=== PATIENT | female | born 1965 | race Caucasian/White ===

== ENCOUNTER 2016-11-27 16:30 | Inpatient (IN) | payer OTHER ==
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
--- NOTE | ~2016-11-27 | DS ---
Unit #: [id number] #: [id number] Patient: DAVID CHINCHILLA [id number] [place] [address] [id number] MR#: [id number] NAME: DAVID CHINCHILLA ROOM: P252 Age: 51 Sex: F Admission Date: 11/27/2016 : 1965 Discharge Date: 12/01/2016 Attending Physician: Domenico Huff M.D. Primary Care Physician: Generic Doctor Not In System DISCHARGE SUMMARY REASON FOR ADMISSION David is a 51-year-old woman with a history depression who report increasing depressive symptoms including low motivation, low energy, irritability, hopelessness, helplessness, sadness and increasing suicidal ideation. She was unable to contract for safety was admitted for stabilization. DIAGNOSTIC STUDIES LABORATORY DATA: Please see hospital chart. HOSPITAL COURSE David was admitted and placed on suicide precautions. Expiration of her medicines revealed that she was on dual antidepressant treatment with Effexor and Zoloft, with Xanax as needed for anxiety. Zoloft 150 mg daily was continued and Effexor XR was increased to 150 mg daily for better control of both depression and anxiety. Trazodone was also added for control of depression. Her other medications were continued unchanged. She engaged in psychotherapy groups and was a generally active and good participant. Her mood gradually improved and on date of discharge she was able to contract for safety with no further suicidal ideation, intent or plan. DISCHARGE DIAGNOSIS AXIS I: Major depressive disorder. AXIS II: No diagnosis. AXIS III: Hypertension, chronic pain. INSTRUCTION TO PATIENT Follow up with primary care physician and with adult psychiatric IOP at our facility. DISCHARGE MEDICATIONS Effexor XR 150 mg daily for depression. Trazodone 50 mg at bedtime as needed for insomnia. Medications continue unchanged were Zoloft 150 mg daily for depression, Xanax 1 mg twice daily for anxiety, lisinopril 20 mg daily for hypertension, Robaxin 750 mg t.i.d. for muscle relaxation, baclofen 20 mg t.i.d. for muscle relaxation, Motrin 800 every 8 hours as needed for pain. CONDITION ON DISCHARGE Improved. Unit #: [id number] #: [id number] Patient: DAVID CHINCHILLA PROGNOSIS Fair to good. DIET AND ACTIVITY Per primary care physician Dictated by... Domenico Huff M.D. [facility]/rll TD: 01/09/2017 04:50 JOB #: [id number] DISCHARGE SUMMARY Page 1 of 1 X Domenico Huff MD DISCHARGE SUMMARY
--- NOTE | ~2016-11-27 | HP ---
Unit #: [id number] #: [id number] Patient: DAVID CHINCHILLA [id number] [place] [address] [id number] MR#: [id number] NAME: DAVID CHINCHILLA ROOM: P252 Age: 51 Sex: F Admission Date: 11/27/2016 : 1965 Attending Physician: Domenico Huff M.D. Admitting Physician: Domenico Huff M.D. Primary Care Physician: Generic Doctor Not In System HISTORY AND PHYSICAL HISTORY OF PRESENT ILLNESS David is a 51 year old admitted to [address] [place] [address] with increased depression and anxiety. PAST MEDICAL HISTORY High blood pressure. PAST SURGICAL HISTORY x1. ALLERGIES Latex. SOCIAL HISTORY She does not smoke. Drinks a fifth of liquor on a weekly basis and denies illicit drug use. FAMILY HISTORY Medically noncontributory. REVIEW OF SYSTEMS CONSTITUTIONAL: No fever or chills. HEENT: Denies any sore throat, ear pain or runny nose. CARDIOVASCULAR: Denies chest pain, irregular heart rhythm or palpitations. CHEST: Denies shortness of breath or cough. No hemoptysis. GASTROINTESTINAL: Denies nausea, vomiting, diarrhea or chronic constipation. ENDOCRINE: Denies history of increased thirst or urination. No recent significant weight loss or gain. GENITOURINARY: Denies dysuria, frequency, or hematuria. SKIN: Denies any rashes. HEMATOLOGIC: Denies history of increased bleeding or bruising. MUSCULOSKELETAL: Denies any hot, swollen joints. No generalized muscle pain. NEUROLOGIC: Denies problems with vision or speech. No frequent, severe headaches. No numbness, tingling or weakness in any extremities. Denies loss of bladder or bowel control. CURRENT MEDICATIONS 1. Xanax 1 mg b.i.d. 2. Milk of Magnesia p.r.n. 3. Maalox p.r.n. 4. Tylenol p.r.n. Unit #: [id number] #: [id number] Patient: DAVID CHINCHILLA 5. Lioresal 20 mg t.i.d. p.r.n. 6. Desyrel 50 mg q.h.s. p.r.n. 7. Methocarbamol 750 mg t.i.d. 8. Zoloft 150 mg daily. 9. Effexor XR 75 mg daily. 10. Zestril 20 mg daily. PHYSICAL EXAMINATION GENERAL: Alert, well-nourished, in no apparent distress. VITAL SIGNS: Blood pressure 110/74, heart rate 80, respirations 16, temperature 98.6. SKIN: Warm and dry without rash or lesion. HEENT: Normocephalic. TMs not viewed. Oral and nasal passages clear. Conjunctivae clear. PERRLA. EOMs intact. NECK: Supple without lymphadenopathy or thyromegaly. HEART: Regular rate and rhythm without murmur. LUNGS: Clear. ABDOMEN: Soft, nontender. : Not done. EXTREMITIES: No evidence of cyanosis, clubbing or edema. Moves all without focal deficit. NEUROLOGICAL: Grossly within normal limits. Cranial Nerves: II: Visual dalton are intact. III, IV AND : Extraocular movements are intact. Pupils are equal, round and reactive to light. V: Facial sensation is grossly normal. VII: Facial movements and expression are normal. VIII: Auditory acuity grossly intact. IX, X: Uvula is midline. Phonation is normal. XI: Patient shrugs shoulders and turns head normally. XII: Tongue protrudes in the midline. Sensory and Motor Function: Sensory and motor sensation is grossly normal. Motor: moves all extremities well. Coordination: Gait is normal. Deep Tendon Reflexes: Intact. IMPRESSION Psychiatric admission. RECOMMENDATIONS PSYCHIATRIC: Per psychiatrist. MEDICAL: See no contraindication to participate in facility's activities. MEDICAL PROGNOSIS Good. MEDICAL CONDITION Stable. Dictated by... Lucy Monique P.A.-C. for Olaf Lopez/sami TD: 11/28/2016 15:14 JOB #: [id number] Unit #: [id number] #: [id number] Patient: DAVID CHINCHILLA HISTORY AND PHYSICAL Page 1 of 1 X Lucy Monique HISTORY AND PHYSICAL
[2016-11-28 09:44] LABS: BASOPHIL% 0.5 % (0-2.5); EOSINOPHIL# 0.1 X10e3 (0-0.7); EOSINOPHIL% 1.1 % (0.0-7.0); HEMATOCRIT 43.8 % (35.0-45.0); HEMOGLOBIN 14.6 gm/dL (12.0-16.0); LYMPHOCYTE# 1.6 X10e3 (1.0-3.5); LYMPHOCYTE% 20.1 % (17.0-45.0); MEAN CELL VOLUME 91.1 FL (83-96); MEAN CORPUSCULAR HEMOGLOBIN 30.4 PG (28-34); MEAN CORPUSCULAR HGB CONC 33.4 g/dL (30-36); MEAN PLATELET VOLUME 10.3 FL (6.5-11.5); MONOCYTE# 0.4 X10e3 (0-1.0); MONOCYTE% 4.6 % (3.0-12.0); NEUTROPHIL% 73.7 % (40-75); PLATELET COUNT 182 X10e3 (140-420); RED BLOOD COUNT 4.81 X10e (3.90-5.30); RED CELL DISTRIBUTION WIDTH 14.1 % (11.0-15.5); WHITE BLOOD COUNT 8.1 X10e3 (4.0-10.5)
[2016-11-28 10:08] LABS: DIFF IND NO
[2016-11-28 10:15] LABS: ALBUMIN SERUM 4.4 g/dL (3.5-5.0); BILIRUBIN,TOTAL 0.8 mg/dL (0.2-2.0); CALCIUM SERUM 9.8 mg/dL (8.4-10.2); CREATININE SERUM 0.8 mg/dL (0.6-1.4); GLOM FILT RATE Estimated 85.4 mL/min (>60); POTASSIUM 4.2 mmol/L (3.5-5.1); PROTEIN TOTAL SERUM 7.4 g/dL (6.0-8.3)
[2016-11-28 10:24] LABS: THYROID STIMULATING HORMONE 0.94 uIU/ml (0.34-5.60)
[2016-11-28 10:35] LABS: FREE THYROXIN (T4) 0.6 ng/dL (0.58-1.64)
[2016-11-30 13:08] LABS: URINE APPEARANCE CLEAR; URINE BILIRUBIN NEG (NEG); URINE BLOOD NEG (NEG); URINE COLOR YELLOW; URINE GLUCOSE NEG (NEG); URINE KETONE NEG (NEG); URINE LEUKOCYTE ESTERASE TRACE (NEG); URINE NITRATE NEG (NEG); URINE PROTEIN NEG (NEG); URINE SPECIFIC GRAVITY 1.014 (1.003-1.035); URINE UROBILINOGEN 0.2 MG/DL (NEG)
[2016-11-30 13:10] LABS: URBCS1 AUWI 0-2 /[HPF] (0-2); URINE BACTERIA AUWI 1+ (NEGATIVE); URINE SQUAMOUS EPITHELIAL CELL OCC /[HPF]; UWBCS1 AUWI 0-2 (0-5)
[2016-11-30 13:20] LABS: AMPHETAMINE NEG (NEG); BARBITURATES NEG (NEG); BENZODIAZEPINES POS (NEG); COCAINE NEG (NEG); MARIJUANA NEG (NEG); OPIATES NEG (NEG); TRICYCLIC ANTIDEPRESSANTS NEG (NEG); U METHADONE NEG (NEG)
== END 2016-12-01 14:00 | disposition home or self-care (01) | DRG 885 ==
LOC: P2L 16:30
PROVIDERS: Psychiatry & Neurology Psychiatry
DX: F33.2 Major depressive disorder, recurrent severe without psychotic features (principal); R45.851 Suicidal ideations; I10 Essential (primary) hypertension; F41.9 Anxiety disorder, unspecified; F10.10 Alcohol abuse, uncomplicated; M79.7 Fibromyalgia; G89.29 Other chronic pain; G47.00 Insomnia, unspecified
CPT/HCPCS: 80053; 80307; 81003; 82947; 84439; 84443; 84703; 85025